=== PATIENT | male | born 1985 | race African-American/Black ===

== ENCOUNTER 2016-11-13 09:32 | Emergency (ER) | payer OTHER ==
--- NOTE | 2016-11-13 10:11 | ED Physician Chart ---
Chief Complaint/HPI - Patient Information Date Seen:: 11/13/16 Time Seen:: 10:11 Chief Complaint:: ABSCESS LT ANTERIOR NECK X 1 WEEK History of Present Illness:: This 31-year-old male presents with a one-week history of a painful abscess in the left anterior neck. Patient has had similar abscesses in the submental region which he associates with shaving. He denies any fever, chills or diaphoresis. He has no history of diabetes or any other autoimmune disorder. The abscesses 5/10 severity in regard to pain. No drainage from the abscess at the present time. No difficulty swallowing and no soreness in the throat region. Allergies:: Allergies Allergy/AdvReac Type Severity Reaction Status Date / Time No Known Allergies Allergy Verified 07/06/16 10:06 Vitals:: Vital Signs - 8 hr 11/13/16 11/13/16 09:45 09:47 Temp 98.6 F HR 79 RR 15 BP 117/71 117/71 O2 Sat % 98 Review of Systems - Review of Systems General/Constitutional: No fever, No chills, No diaphoresis, No loss of appetite Skin: No rash, No bruising, Other (abscess left anterior neck.) Head: No headache, No light-headedness Eyes: No loss of vision, No diplopia ENT: No earache, No sore throat, No tinnitus Neck: Neck pain, No swelling, No stiffness, Mass noted Cardio Vascular: No chest pain, No orthopnea, No edema Pulmonary: No SOB, No cough, No sputum, No wheezing GI: No nausea, No vomiting, No diarrhea, No pain, No hematemesis G/U: No dysuria, No frequency, No hematuria Musculoskeletal: No bone or joint pain, No back pain, No muscle pain Psychiatric: Prior psych history, No depression, No suicidal ideation Hematopoietic: No bruising, No lymphadenopathy Allergic/Immuno: No urticaria, No angioedema Neurological: No syncope, No focal symptoms, No weakness, No paresthesia, No headache, No seizure, No dizziness, No confusion, No vertigo Past Medical History - Past Medical History Past Medical History: No significant medical hx Social History: Non Smoker, No Alcohol, No Drug Use, 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 There is mild erythema surrounding the abscess. No associated cellulitis. One anterior cervical and node on the left side. ENMT: External ears, nose nl, Nasal exam nl, Lips, teeth, gums nl, Oropharynx nl , Tonsils nl Other Neck comments:: No cervical spine tenderness. The neck is supple. Patient has a 2 x 2 cm abscess over the left anterior neck and an associated prominent lymph node. No JVD. Respiratory: Nl effort/Exclusion, Clear to Auscultation, No Wheeze/Rhonchi/Rales Cardio Vascular: RRR, No murmur, gallop, rubs, NL S1 S2 Other Cardio Vascular comments:: Good pulses in all four extremities. GI: No tenderness/rebounding/guarding, No organomegaly, No hernia, Nondistended Other GI comments:: No palpable masses. : No CVA tenderness Other comments:: Normal male genitalia. Extremities: No tenderness or effusion, Full ROM, normal strength in all extremities Neuro/Psych: Alert/oriented, Normal motor strength, Judgement/insight normal, Mood normal, Normal gait, No focal deficits Other Neuro/Psych comments:: Sensory is intact to light touch in all four extremities. Labs/Radiology/EKG Results - Lab Results Results: No laboratory or radiographic studies were indicated. PROCEDURE: Abscess IN'D LEFT NECK: PREPPED WITH Betadean and the area was great. Local anesthesia was obtained by using 3 mL of 1% lidocaine Local infiltration. Incision was accomplished with a number 11 blade over the head of the abscess. A second incision was made at the 3 o'clock position of the abscess margin.loculations were broken us by blunt dissection using a mosquito forceps. The cavity was irrigated with normal saline, 50 cc. A rubber band type drain was placed through both incissions and tied in a knot so as to hold the margins open. There was no uncontrolled bleeding. the patient tolerated the procedure well. Nursing applied a gauze dressing over the region. Patient was instructed to shower and to move the rubber loop so as to hold the skin margins apart. He was advised to return for reevaluation and probable removal of the drain in 2 to 3 days Assessment - Assessment General Assessment: CASE SUMMARY: 31-year-old male presented with a one-week history of an abscess and is left anterior neck. The abscess was incised and rained in the usual manner. A rubber band train was inserted to hold the margins open. Nursing applied to sterile dressing over the area. The patient was given a prescription for Bactrim DS to be taken twice a day for five days. Wound check and removal of the drain in 2 to 3 days or sooner if there is any worsening of symptoms. ED Septic Shock - . Is Septic Shock (SBP<90, OR Lactate>4 mmol\L) present?: No - <6hrs of presentation: Vital Signs: Vital Signs - 8 hr 11/13/16 11/13/16 09:45 09:47 Temp 98.6 F HR 79 RR 15 BP 117/71 117/71 O2 Sat % 98 Reassessment (Disposition) - Reassessment Reassessment Condition:: Improved - Diagnosis Diagnosis:: 2 cm x 2 cm abscess in the left anterior neck. ED Discharge Plan - Patient Disposition Admit/Discharge/Transfer: PT DISCHARGED HOME Condition at Disposition: Improved Prescriptions: Sulfamethoxazole/Trimethoprim [Bactrim Ds Tablet] 1 each PO BID #0 tablet Instructions: Abscess Accepting Physician: , Primary [Other]
[2016-11-13 10:16] VITALS: BP 117/71
[2016-11-13] MEDS ORDERED: EPINEPHRine /Lidocaine 1% 20 mL Vial INJ ONE (10:17)
== END 2016-11-13 10:42 | disposition home or self-care (01) ==
LOC: ER 09:32
DX: L02.11 Cutaneous abscess of neck (principal)
CPT/HCPCS: X6444; Z7502

== ENCOUNTER 2016-11-19 10:26 | Emergency (ER) | payer MEDICARE, OTHER ==
--- NOTE | 2016-11-19 11:01 | ED Physician Chart ---
Chief Complaint/HPI - Patient Information Date Seen:: 11/19/16 Time Seen:: 10:39 Chief Complaint:: abscess left face History of Present Illness:: This is a 31 yo male who has return to this er for a wound check and is concerned with why he is infected with abscess over and over again. He denies fever. His abscess drain is noted in place and the swelling has lessen. He want some blood test to try to get to cause of his recurrent infections. Allergies:: Allergies Allergy/AdvReac Type Severity Reaction Status Date / Time No Known Allergies Allergy Verified 11/19/16 10:51 Vitals:: Vital Signs - 8 hr 11/19/16 10:26 Temp 96.9 F HR 61 RR 16 BP 118/67 O2 Sat % 98 Historian:: Patient Review:: Nurse's Note Reviewed Review of Systems - Review of Systems General/Constitutional: No fever, No chills, No weight loss, No weakness, No diaphoresis, No edema, No loss of appetite Skin: Skin lesions (left chin area is still swollen and tender.), No rash, No bruising Head: No headache, No light-headedness Eyes: No loss of vision, No pain, No diplopia ENT: No earache, No nasal drainage, No sore throat, No tinnitus Neck: No neck pain, No swelling, No thyromegaly, No stiffness, No mass noted Cardio Vascular: No chest pain, No palpitations, No PND, No orthopnea, No edema Pulmonary: No SOB, No cough, No sputum, No wheezing GI: No nausea, No vomiting, No diarrhea, No pain, No melena, No hematochezia, No constipation, No hematemesis G/U: No dysuria, No frequency, No hematuria Musculoskeletal: No bone or joint pain, No back pain, No muscle pain Endocrine: No polyuria, No polydipsia Psychiatric: No prior psych history, No depression, No anxiety, No suicidal ideation Hematopoietic: No bruising, No lymphadenopathy Allergic/Immuno: No urticaria, No angioedema Neurological: No syncope, No focal symptoms, No weakness, No paresthesia, No headache, No seizure, No dizziness, No confusion, No vertigo Past Medical History - Past Medical History Obtainable: Yes Past Medical History: No significant medical hx Family History: None Social History: Non Smoker, No Alcohol, No Drug Use Surgical History: None Psychiatricy History: None Medication: Reviewed Family Medical History - Family Member Mother History Unknown: Yes Father Living Status: Hx Family Cancer: Yes Physical Exam - Physical Examination General/Constitutional: Awake, Well-developed, well-nourished, Alert, No distress, GCS 15, Non-toxic appearing, Ambulatory Head: Atraumatic Eyes: Lids, conjuctiva normal, PERRL, EOMI Skin: No ecchymosis, Well hydrated, No lymphadenopathy Other Skin comments:: There is a resolving abscess under the chin with the rubber drain noted on the left side. The rubber drain is in place. The drain was pulled out and the abscessed area was re-examined. ENMT: External ears, nose nl, Nasal exam nl, Lips, teeth, gums nl Neck: Nontender, Full ROM w/o pain, No JVD, No nuchal rigidity, No bruit, No mass, No stridor Respiratory: Nl effort/Exclusion, Clear to Auscultation, No Wheeze/Rhonchi/Rales Cardio Vascular: RRR, No murmur, gallop, rubs, NL S1 S2 GI: No tenderness/rebounding/guarding, No organomegaly, No hernia, Normal BS's, Nondistended, No mass/bruits, No McBurney tenderness : No CVA tenderness Extremities: No tenderness or effusion, Full ROM, normal strength in all extremities, No edema, Normal digits & nails Neuro/Psych: Alert/oriented, DTR's symmetric, Normal sensory exam, Normal motor strength, Judgement/insight normal, Mood normal, Normal gait, No focal deficits Misc: normal gait, Normal back, No paraspinal tenderness Labs/Radiology/EKG Results - Lab Results Results: Abnormal Lab Results 11/19/16 11/19/16 11/19/16 11:05 11:05 11:05 WBC 3.2 L RBC 5.32 Hgb 14.0 Hct 42.8 MCV 80.4 MCH 26.3 MCHC Differential 32.7 RDW 13.6 Plt Count 250 MPV 9.1 Neutrophils % 45.2 Lymphocytes % 42.3 Monocytes % 8.0 Eosinophils % 3.4 Basophils % 1.1 PT 10.5 INR 1.06 Sodium Potassium Chloride Carbon Dioxide Anion Gap BUN Creatinine Est GFR ( Amer) Est GFR (Non-Af Amer) BUN/Creatinine Ratio Glucose Calcium Total Bilirubin AST ALT Alkaline Phosphatase Total Protein Albumin Globulin Albumin/Globulin Ratio Triglycerides 43 Cholesterol 168 LDL Cholesterol Direct 107 HDL Cholesterol 52 TSH Urine Source Urine Color Urine Clarity Urine pH Ur Specific [place] Urine Protein Urine Glucose (UA) Urine Ketones Urine Blood Urine Nitrate Urine Bilirubin Urine Urobilinogen Ur Leukocyte Esterase Urine Opiates Screen Ur Barbiturates Screen Ur Phencyclidine Scrn Amphetamines Screen U Methamphetamines Scrn U Benzodiazepines Scrn U Cocaine Metab Screen U Cannabinoids Screen HIV 1&2 Antibody Screen 11/19/16 11/19/16 11/19/16 11:05 11:05 11:05 WBC RBC Hgb Hct MCV MCH MCHC Differential RDW Plt Count MPV Neutrophils % Lymphocytes % Monocytes % Eosinophils % Basophils % PT INR Sodium 133 L Potassium 3.9 Chloride 104 Carbon Dioxide 27.9 Anion Gap 5.0 L BUN 14 Creatinine 1.0 Est GFR ( Amer) > 60.0 Est GFR (Non-Af Amer) > 60.0 BUN/Creatinine Ratio 14.0 Glucose 67 L Calcium 9.7 Total Bilirubin 0.4 AST 15 ALT 22 Alkaline Phosphatase 54 Total Protein 8.1 Albumin 4.3 Globulin 3.8 Albumin/Globulin Ratio 1.1 Triglycerides Cholesterol LDL Cholesterol Direct HDL Cholesterol TSH 0.59 Urine Source Urine Color Urine Clarity Urine pH Ur Specific [place] Urine Protein Urine Glucose (UA) Urine Ketones Urine Blood Urine Nitrate Urine Bilirubin Urine Urobilinogen Ur Leukocyte Esterase Urine Opiates Screen Ur Barbiturates Screen Ur Phencyclidine Scrn Amphetamines Screen U Methamphetamines Scrn U Benzodiazepines Scrn U Cocaine Metab Screen U Cannabinoids Screen HIV 1&2 Antibody Screen NEGATIVE 11/19/16 11/19/16 11:10 11:10 WBC RBC Hgb Hct MCV MCH MCHC Differential RDW Plt Count MPV Neutrophils % Lymphocytes % Monocytes % Eosinophils % Basophils % PT INR Sodium Potassium Chloride Carbon Dioxide Anion Gap BUN Creatinine Est GFR ( Amer) Est GFR (Non-Af Amer) BUN/Creatinine Ratio Glucose Calcium Total Bilirubin AST ALT Alkaline Phosphatase Total Protein Albumin Globulin Albumin/Globulin Ratio Triglycerides Cholesterol LDL Cholesterol Direct HDL Cholesterol TSH Urine Source CLEAN C Urine Color YELLOW Urine Clarity CLEAR Urine pH 7.0 Ur Specific [place] 1.015 Urine Protein NEGATIVE Urine Glucose (UA) NEGATIVE Urine Ketones NEGATIVE Urine Blood NEGATIVE Urine Nitrate NEGATIVE Urine Bilirubin NEGATIVE Urine Urobilinogen 0.2 Ur Leukocyte Esterase NEGATIVE Urine Opiates Screen NEGATIVE Ur Barbiturates Screen NEGATIVE Ur Phencyclidine Scrn NEGATIVE Amphetamines Screen NEGATIVE U Methamphetamines Scrn NEGATIVE U Benzodiazepines Scrn NEGATIVE U Cocaine Metab Screen NEGATIVE U Cannabinoids Screen NEGATIVE HIV 1&2 Antibody Screen ED Septic Shock - . Is Septic Shock (SBP<90, OR Lactate>4 mmol\L) present?: No - <6hrs of presentation: Vital Signs: Vital Signs - 8 hr 11/19/16 10:26 Temp 96.9 F HR 61 RR 16 BP 118/67 O2 Sat % 98 Reassessment (Disposition) - Reassessment Reassessment Condition:: Improved - Diagnosis Diagnosis:: abscess of the face - Aftercare/Follow up Instructions Aftercare/Follow-Up Instructions:: Counseled pt regarding lab results/diagnosis & need follow up, Refer to Discharge Instructions, Counseled pt & family regarding lab results/diagnosis & need follow up - Patient Disposition Discharge/Transfer:: Home Condition at Disposition:: Improved ED Discharge Plan - Patient Disposition Admit/Discharge/Transfer: PT DISCHARGED HOME Condition at Disposition: Improved Instructions: Abscess Accepting Physician: Zack Ring [Other] - 1-3 Days
[2016-11-19 11:20] LABS: % BASOPHILS 1.1 % (0.0-2.0); % EOSINOPHILS 3.4 % (0.0-5.0); % LYMPHOCYTES 42.3 % (20.0-50.0); % NEUTROPHILS 45.2 % (40.0-80.0); HEMATOCRIT 42.8 % (39.0-49.0); MEAN CELL VOLUME 80.4 fl (80-99); MEAN CORPUSCULAR HEMOGLOBIN 26.3 pg (26.0-30.0); MEAN CORPUSCULAR HGB CONC 32.7 pg (28.0-36.0); MEAN PLATELET VOLUME 9.1 fl; NEUTROPHILE ABSOLUTE 1.4 Th/cmm (1.8-8.0); PLATELET COUNT 250 Th/cmm (150-400); RED BLOOD COUNT 5.32 Mil/cmm (4.30-5.70); RED CELL DISTRIBUTION WIDTH 13.6 % (11.5-20.0); WHITE BLOOD COUNT 3.2 Th/cmm (4.8-10.8)
[2016-11-19 11:23] LABS: URINE BILIRUBIN NEGATIVE (NEGATIVE); URINE BLOOD NEGATIVE (NEGATIVE); URINE COLOR YELLOW; URINE GLUCOSE (UA) NEGATIVE (NEGATIVE); URINE KETONE NEGATIVE (NEGATIVE); URINE PROTEIN NEGATIVE (NEGATIVE); URINE UROBILINOGEN 0.2 E.U./dL (0.2 - 1.0)
[2016-11-19 11:27] LABS: INR 1.06 (0.5-1.4); PROTHROMBIN TIME (TEST) 10.5 SECONDS (9.5-11.5)
[2016-11-19 11:31] LABS: ALB/GLOB RATIO 1.1 (1.0-1.8); ALKALINE PHOSPHATASE 54 U/L (34-104); BILIRUBIN,TOTAL 0.4 mg/dL (0.3-1.0); BUN - UREA NITROGEN 14 mg/dL (7-25); CALCIUM SERUM 9.7 mg/dL (8.6-10.3); CARBON DIOXIDE 27.9 mEq/L (21.0-31.0); CHLORIDE 104 mEq/L (98-107); CHOLESTEROL 168 mg/dL (<200); GLUCOSE 67 mg/dL (70-105); POTASSIUM SERUM 3.9 mEq/L (3.5-5.1); SGOT 15 U/L (13-39); SGPT/ALT 22 U/L (7-52); SODIUM SERUM 133 mEq/L (136-145); TRIGLYCERIDES 43 mg/dL (<150)
[2016-11-19 11:41] LABS: AMPHETAMINE URINE NEGATIVE (NEGATIVE); BARBITURATES URINE NEGATIVE (NEGATIVE)
== END 2016-11-19 11:50 | disposition home or self-care (01) ==
LOC: ER 10:26
DX: L02.01 Cutaneous abscess of face (principal)
CPT/HCPCS: 36415-UA; 80053-TC; 80061-TC; 81003-TC; 84443-TC; 85025-TC; 85610-TC; 86592-TC; 86703-TC; Z7502

== ENCOUNTER 2016-12-30 09:33 | Emergency (ER) | payer MEDICARE, OTHER ==
--- NOTE | 2016-12-30 09:52 | ED Physician Chart ---
Chief Complaint/HPI - Patient Information Date Seen:: 12/30/16 Time Seen:: 09:35 Chief Complaint:: Chest pain since last evening. History of Present Illness:: Pt c/o onset of localized L sided chest pain since about 7 pm yesterday, characterized as intermittent, sharp pressure like, precipitated and aggravated with bending forward or chest wall movements. Pt took for 4 baby ASA's last evening that did alleviate his symptom. Pt does weight lifting daily. Pt does not recall any injury. Pt did a lot of lifting at least 45 lbs prior to onset of his chest discomfort. Pt usually does 1-2 hours of weight lifting, in addition to running and other exercise. Pt denies any physical or exercise limitation. Pt denies any cough, dyspnea, lightheadedness, palpitation, GIBSON, PND , or ankle edema. Allergies:: Allergies Allergy/AdvReac Type Severity Reaction Status Date / Time No Known Allergies Allergy Verified 11/19/16 10:51 Vitals:: see Nurse Note. Historian:: Patient Family MD/PCP:: Dr. Sy LMP:: N/A Review:: Nurse's Note Reviewed Review of Systems - Review of Systems General/Constitutional: No fever, No chills, No weight loss, No weakness, No diaphoresis, No edema, No loss of appetite Skin: No skin lesions, No rash, No bruising Head: No headache, No light-headedness Eyes: No loss of vision, No pain, No diplopia ENT: No earache, No nasal drainage, No sore throat, No tinnitus Neck: No neck pain, No swelling, No thyromegaly, No stiffness, No mass noted Cardio Vascular: No palpitations, No PND, No orthopnea, No edema, other (Chest pain related to chest wall movements.) Pulmonary: No SOB, No cough, No sputum, No wheezing GI: No nausea, No vomiting, No diarrhea, No pain, No melena, No hematochezia, No constipation, No hematemesis Musculoskeletal: No back pain, Other (chest wall pain, see HPI.) Endocrine: No polyuria, No polydipsia Psychiatric: No prior psych history Hematopoietic: No bruising, No lymphadenopathy Allergic/Immuno: No urticaria, No angioedema Neurological: No syncope, No focal symptoms, No weakness, No paresthesia, No headache, No seizure, No dizziness, No confusion, No vertigo Past Medical History - Past Medical History Past Medical History: No significant medical hx Family History: Diabetes Melitus, HTN, Cancer Social History: Non Smoker, No Alcohol, No Drug Use, Single, Employed, Other ( lives with his significant other.) 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 Surgical History: other (L neck cyst removal about a month ago.) Psychiatricy History: None Medication: Reviewed Family Medical History - Family Member Mother History Unknown: Yes Father Living Status: Hx Family Cancer: Yes Physical Exam - Physical Examination General/Constitutional: Awake, Well-developed, well-nourished, Alert, No distress, GCS 15, Non-toxic appearing, Ambulatory Head: Atraumatic Eyes: Lids, conjuctiva normal, PERRL, EOMI Skin: Nl inspection, No rash, No skin lesions, No ecchymosis, Well hydrated, No lymphadenopathy ENMT: External ears, nose nl, Nasal exam nl, Lips, teeth, gums nl, Oropharynx nl , Tonsils nl Neck: Nontender, Full ROM w/o pain, No JVD, No nuchal rigidity, No bruit, No mass, No stridor Other Neck comments:: Carotid 2+/2+ Respiratory: Nl effort/Exclusion, Clear to Auscultation, No Wheeze/Rhonchi/Rales Cardio Vascular: No murmur, gallop, rubs, NL S1 S2 Other Cardio Vascular comments:: Mild bradycardia with HR 58. GI: No tenderness/rebounding/guarding, No organomegaly, No hernia, Normal BS's, Nondistended, No mass/bruits, No McBurney tenderness Other GI comments:: Abdomen is soft. Extremities: No tenderness or effusion, Full ROM, normal strength in all extremities, No edema, Normal digits & nails Neuro/Psych: Alert/oriented (oriented x 3), Judgement/insight normal, Mood normal, Normal gait, No focal deficits Labs/Radiology/EKG Results - Lab Results Results: Laboratory Tests 12/30/16 12/30/16 12/30/16 09:50 09:50 09:50 WBC 3.7 L RBC 5.20 Hgb 13.7 Hct 41.9 MCV 80.7 MCH 26.4 MCHC Differential 32.7 RDW 13.8 Plt Count 267 MPV 8.6 Neutrophils % 44.6 Lymphocytes % 40.6 Monocytes % 8.6 Eosinophils % 4.3 Basophils % 1.9 PT 11.0 INR 1.06 PTT (Actin FS) 25.8 L Sodium 136 Potassium 4.4 Chloride 106 Carbon Dioxide 29.9 Anion Gap 4.5 L BUN 11 Creatinine 1.1 Est GFR ( Amer) > 60.0 Est GFR (Non-Af Amer) > 60.0 BUN/Creatinine Ratio 10.0 Glucose 92 Calcium 9.5 Creatine Kinase CK-MB (CK-2) Troponin I 12/30/16 12/30/16 09:50 10:15 WBC RBC Hgb Hct MCV MCH MCHC Differential RDW Plt Count MPV Neutrophils % Lymphocytes % Monocytes % Eosinophils % Basophils % PT INR PTT (Actin FS) Sodium Potassium Chloride Carbon Dioxide Anion Gap BUN Creatinine Est GFR ( Amer) Est GFR (Non-Af Amer) BUN/Creatinine Ratio Glucose Calcium Creatine Kinase 241 H CK-MB (CK-2) 1.2 Troponin I < 0.01 L - Radiology Results Results: PCXR: Based on my interpretation, NAD. Official report is pending. - EKG Interpretations EKG Time:: 09:37 Rhythm: Sinus bradycardia Rate: 58 Comments:: NSSTT changes with J point elevation. ED Septic Shock - . Is Septic Shock (SBP<90, OR Lactate>4 mmol\L) present?: No Reassessment (Disposition) - Reassessment Reassessment:: 1105 Pt feels much better. Chest pain has essentially resolved. CXR, EKG, and lab findings have been reviewed with pt. Pt requests to go home now and does not want further observation/management in hospital. Aftercare instructions given. Reassessment Condition:: Improved - Diagnosis Diagnosis:: Noncardiac chest wall pain due to chest muscle strain related to recent h/o excessive wt lifting, stable and improved. - Aftercare/Follow up Instructions Aftercare/Follow-Up Instructions:: Refer to Discharge Instructions Notes:: Avoid lifting, strenuous activities that increase chest wall motion. May take Motrin 200 mg tab 4 tabs po q8h prn musculoskeletal pain. F/U with PCP Dr. Sy in one day for recheck and repeat lab study: CBC. Return to ER immediately if condition worsens or if any further questions/ problems. Medication Prescribed:: None - Patient Disposition Discharge/Transfer:: Home Time:: 11:10 Condition at Disposition:: Stable, Improved
[2016-12-30 09:55] LABS: % BASOPHILS 1.9 % (0.0-2.0); % EOSINOPHILS 4.3 % (0.0-5.0); % LYMPHOCYTES 40.6 % (20.0-50.0); % MONOCYTES 8.6 % (2.0-10.0); % NEUTROPHILS 44.6 % (40.0-80.0); HEMATOCRIT 41.9 % (39.0-49.0); HEMOGLOBIN 13.7 gm/dL (13.2-17.3); MEAN CELL VOLUME 80.7 fl (80-99); MEAN CORPUSCULAR HEMOGLOBIN 26.4 pg (26.0-30.0); MEAN CORPUSCULAR HGB CONC 32.7 pg (28.0-36.0); MEAN PLATELET VOLUME 8.6 fl; NEUTROPHILE ABSOLUTE 1.6 Th/cmm (1.8-8.0); PLATELET COUNT 267 Th/cmm (150-400); RED CELL DISTRIBUTION WIDTH 13.8 % (11.5-20.0)
[2016-12-30 09:57] LABS: WHITE BLOOD COUNT 3.7 Th/cmm (4.8-10.8)
[2016-12-30 10:13] LABS: ANION GAP 4.5 (7.0-16.0); BUN - UREA NITROGEN 11 mg/dL (7-25); CALCIUM SERUM 9.5 mg/dL (8.6-10.3); CARBON DIOXIDE 29.9 mEq/L (21.0-31.0); CHLORIDE 106 mEq/L (98-107); CREATININE - SERUM 1.1 mg/dL (0.7-1.3); GLUCOSE 92 mg/dL (70-105); INR 1.06 (0.5-1.4); POTASSIUM SERUM 4.4 mEq/L (3.5-5.1); SODIUM SERUM 136 mEq/L (136-145)
[2016-12-30 10:57] LABS: CREATINE KINASE MB 1.2 ng/mL (0.6-6.3)
--- NOTE | 2016-12-30 11:19 | Diagnostic Imaging Report ---
CLINICAL INDICATION: Shortness of breath FINDINGS: Heart size is normal. No infiltrates or effusions. No bony thoracic abnormalities. IMPRESSION: Normal chest x-ray.
== END 2016-12-30 11:23 | disposition home or self-care (01) ==
LOC: ER 09:33
DX: S29.011A Strain of muscle and tendon of front wall of thorax, initial encounter (principal); Z98.890 Other specified postprocedural states; X58.XXXA Exposure to other specified factors, initial encounter; Y93.89 Activity, other specified; Y92.89 Other specified places as the place of occurrence of the external cause; Y99.8 Other external cause status
CPT/HCPCS: 36415-UA; 71010-TC; 80048-TC; 82550-TC; 82553; 84484-TC; 85025-TC; 85610-TC; 93005